=== PATIENT | female | born 1935 | race Caucasian/White ===

== ENCOUNTER → 2017-12-03 | Outpatient (CLI) | payer MEDICARE, OTHER ==
[~2017-12-03] MED LIST: ASCO500 PO; ASPI325 PO; ASPI500 PO; Aspirin EC81 MG PO; Avastin25 MG/ML INJ; BENAML10/5 PO; CALCA500CH PO; CALCIUM PO; CALPHO600 PO; CEPH500 PO; CHOL10002 PO; CODACE30; CYAN500 PO; Cardizem CD 24240 MG PO; DILT120 PO; DILT120ERA PO; DILT180 PO; DRON400T PO; ELIQUIS5 MG PO; ERGO400 PO; ESTR25VT PV; FAMO10 PO; FAMO20 PO; FOL2.2T PO; FOLGARD TABLET1 EACH PO; FOLI400; FOLI400 PO; HYDACE7.5 PO; HYDCHL12.5 PO; LIDO5TP TOP; LIDO700A20 TOP; LISI5 PO; LOVA20 PO; Lovastatin10 MG PO; MULVITA PO; MULVITB; MULVITMINF PO; Micro-K10 MEQ PO; NEPHROCAP PO; NITR.4SL SL; NITRSPRAY SL; Norco 5-325 Ta1 EACH PO; OCUVITE EYE +1 EACH PO; POTA10T PO; PRED10 PO; PYRI100 PO; Percocet 5-3251 EACH PO; Prednisone20 MG PO; RALO60; SULTRIDS PO; TRIHYD253B PO; UNISOM25 MG PO; VALS80; Vitamin D2000 UNIT PO; ZOLP10 PO; Zofran Odt4 MG PO; Zofran Odt4 MG SL; Zovirax800 MG PO; [UNRECOGNIZED DRUG - CODE] PO; [UNRECOGNIZED DRUG - OTHER] IO; [UNRECOGNIZED DRUG - OTHER] PO
[2017-12-05 16:09] LABS: HPV Genotype 16 Not Detected (NOTDET); HPV Genotype 18 Not Detected (NOTDET)
[2017-12-11 08:51] LABS: HPV High Risk Other Not Detected (NOTDET)
== END | disposition home or self-care (01) ==
LOC: OLS 15:30
PROVIDERS: Nurse Practitioner Women's Health
DX: Z12.72 Encounter for screening for malignant neoplasm of vagina (principal); Z91.89 Other specified personal risk factors, not elsewhere classified
CPT/HCPCS: 87624; G0123

== ENCOUNTER 2018-06-20 12:12 | Day surgery (SDC) | payer MEDICARE, OTHER ==
[~2018-06-20] VITALS: Ht 160 cm; Wt 62.6 kg
[~2018-06-20 12:12] MED LIST changes: -Aspirin EC81 MG PO; -FOLGARD TABLET1 EACH PO; +OXYACE5T PO; -POTA10T PO; -Vitamin D2000 UNIT PO
[2018-06-20 15:40] LABS: Hematocrit 38.7 % (33.0-51.0); Hemoglobin 12.7 g/dL (11.5-16.0)
== END 2018-06-20 23:06 | disposition home or self-care (01) ==
LOC: ORSCMMR 12:12 → ORD 13:45 → ORSCMMR 13:45
PROVIDERS: Internal Medicine Gastroenterology
PROC: 0DJ08ZZ Inspection of Upper Intestinal Tract, Via Natural or Artificial Opening Endoscopic (ICD-10-PCS; principal; 2018-06-20 13:45)
DX: K92.1 Melena (principal); K22.2 Esophageal obstruction; K44.9 Diaphragmatic hernia without obstruction or gangrene; I48.91 Unspecified atrial fibrillation; I10 Essential (primary) hypertension; I73.9 Peripheral vascular disease, unspecified; E78.00 Pure hypercholesterolemia, unspecified; Z79.01 Long term (current) use of anticoagulants; Z79.82 Long term (current) use of aspirin; Z79.899 Other long term (current) drug therapy
CPT/HCPCS: 36415; 85014; 85018; J7120

== ENCOUNTER → 2018-12-08 | Outpatient (CLI) | payer MEDICARE, OTHER ==
[~2018-12-08] MED LIST changes: +Aspirin EC81 MG PO; +FOLGARD TABLET1 EACH PO; -OXYACE5T PO; +POTA10T PO; +Vitamin D2000 UNIT PO
[2018-12-10 14:09] LABS: HPV 16 Negative (Negative); HPV 18 Negative (Negative); HPV OTHER HR TYPES Negative (Negative)
== END | disposition home or self-care (01) ==
LOC: LAB SHORT 14:15 → LAB 14:15
PROVIDERS: Nurse Practitioner Women's Health
DX: Z12.72 Encounter for screening for malignant neoplasm of vagina (principal); Z91.89 Other specified personal risk factors, not elsewhere classified
CPT/HCPCS: 87624; G0123

== ENCOUNTER → 2019-02-11 | Outpatient (CLI) | payer MEDICARE, OTHER ==
[2019-02-11 16:59] LABS: Creatinine, Urine Random 81.3 mg/dL (27.00-270.00); Protein, Urine Random 14.8 mg/dL (0.0-11.9)
== END | disposition home or self-care (01) ==
LOC: LAB SHORT 16:05 → LAB 16:05
PROVIDERS: Internal Medicine
DX: N18.3 Chronic kidney disease, stage 3 (moderate) (principal)
CPT/HCPCS: 82570; 84156

== ENCOUNTER → 2020-07-06 | Outpatient (CLI) | payer OTHER | END | disposition home or self-care (01) | LOC: LAB SHORT 10:49 → PLD 10:49 | DX: D48.5 Neoplasm of uncertain behavior of skin (principal) | CPT/HCPCS: 88305 ==

== ENCOUNTER 2021-03-06 11:50 | Day surgery (SDC) | payer OTHER ==
[~2021-03-06] VITALS: Ht 157.5 cm; Wt 61.6 kg
[~2021-03-06 11:50] MED LIST changes: +C COMPLEX1000 M1 PO; +DILTIAZEM 24HR240 M6 PO; +DRON400T; +ELIQUIS2.5 MG PO; +FURO20 PO; +LOSA25 PO; +MELATONIN1010 PO; +Ocuvite Preser1 EACH PO; +VITAMIN D325 MC3 PO
--- NOTE | 2021-03-06 12:25 | NUR ---
03/06/21 1225 JAGDISH ALCAZAR ONE ATTEMPT BY CLEMENTE IN RFA RAFA SECOND ATTEMPT BY CLEMENTE IN RAC VALVE
== END 2021-03-06 14:32 | disposition home or self-care (01) ==
LOC: ORSCSDS 11:50
PROVIDERS: Student in an Organized Health Care Education/Training Program
PROC: 0DB68ZX Excision of Stomach, Via Natural or Artificial Opening Endoscopic, Diagnostic (ICD-10-PCS; principal; 2021-03-06 13:15)
PROC: 0D758ZZ Dilation of Esophagus, Via Natural or Artificial Opening Endoscopic (ICD-10-PCS; principal; 2021-03-06 13:15)
PROC: 0DB48ZX Excision of Esophagogastric Junction, Via Natural or Artificial Opening Endoscopic, Diagnostic (ICD-10-PCS; principal; 2021-03-06 13:15)
DX: R13.10 Dysphagia, unspecified (principal); K29.50 Unspecified chronic gastritis without bleeding; K44.9 Diaphragmatic hernia without obstruction or gangrene; K22.2 Esophageal obstruction; I48.0 Paroxysmal atrial fibrillation; I73.9 Peripheral vascular disease, unspecified; Z85.72 Personal history of non-Hodgkin lymphomas; I10 Essential (primary) hypertension; E78.5 Hyperlipidemia, unspecified; K21.9 Gastro-esophageal reflux disease without esophagitis; Z79.01 Long term (current) use of anticoagulants; Z79.899 Other long term (current) drug therapy; Z87.891 Personal history of nicotine dependence
CPT/HCPCS: 88305; 88342; C1726; J2704; J7120

== ENCOUNTER 2022-04-28 18:10 | Inpatient (IN) | payer OTHER ==
[~2022-04-28] VITALS: Ht 157.5 cm; Wt 56.8 kg
[~2022-04-28 18:10] MED LIST changes: +TIMO.5OPSO BOTHEYES; +TIZA4 PO
[2022-04-28 18:36] LABS: BASOPHILS ABSOLUTE AUTO 0.02 K/mm3 (0.00-0.23); BASOPHILS PERCENT AUTO 0 % (0-2); EOSINOPHILS ABSOLUTE AUTO 0.01 K/mm3 (0.00-0.68); EOSINOPHILS PERCENT AUTO 0 % (0-6); Hematocrit 37.9 % (33.0-51.0); Hemoglobin 12.7 g/dL (11.5-16.0); IMMATURE GRAN ABSOLUTE AUTO 0.02 K/mm3 (0.00-0.10); IMMATURE GRAN PERCENT AUTO 0 % (0-1); LYMPHOCYTES ABSOLUTE AUTO 1.49 K/mm3 (0.84-5.20); LYMPHOCYTES PERCENT AUTO 17 % (21-46); MONOCYTES ABSOLUTE AUTO 1.18 K/mm3 (0.16-1.47); MONOCYTES PERCENT AUTO 14 % (4-13); Mean Corpuscular HGB 30.8 pg (26.0-34.0); Mean Corpuscular HGB Conc 33.5 g/dL (31.5-36.5); Mean Corpuscular Volume 92 fL (80-100); Mean Platelet Volume 10.4 fL (9.1-12.4); NEUTROPHILS ABSOLUTE AUTO 5.87 K/mm3 (1.96-9.15); NEUTROPHILS PERCENT AUTO 69 % (41-73); Platelet Count 197 K/mm3 (150-400); RDW Standard Deviation 44.2 fL (35.1-46.3); Red Blood Cell Count 4.13 M/mm3 (3.80-5.20); White Blood Cell Count 8.59 K/mm3 (4.00-11.30)
[2022-04-28 18:53] LABS: Albumin, Blood 3.1 g/dL (3.4-5.0); Albumin/Globulin Ratio 0.7 (0.8-1.8); Bilirubin, Total 0.5 mg/dL (0.1-1.0); Bun/Creatinine Ratio 28.6 (12.0-20.0); Calcium, Blood 8.9 mg/dL (8.5-10.1); Creatinine, Blood 1.47 mg/dL (0.40-1.00); Globulin, Blood 4.3 g/dL (2.2-4.0); Potassium, Blood 4.5 mmol/L (3.5-5.5); Total Protein, Blood 7.4 g/dL (6.4-8.2)
[2022-04-28 19:19] LABS: Influenza A, PCR NEGATIVE (NEGATIVE); Influenza B, PCR NEGATIVE (NEGATIVE); Resp Syncytial Virus, PCR NEGATIVE (NEGATIVE); SARS-Cov-2 (COVID-19) PCR, MMC NEGATIVE (NEGATIVE)
[2022-04-28] MEDS ORDERED: DILTIAZEM 24HR240 M3 PO (19:21)
[2022-04-28 21:10] LABS: Source, Urine Clean Catch
[2022-04-28 21:13] LABS: Appearance, Urine Hazy (Clear); Bilirubin, Urine Neg (Neg); Blood, Urine 2+ (Neg); Color, Urine Yellow (P-Yellow); Glucose Qualitative, Urine Neg (Neg); Ketones, Urine 1+ (Neg); Leukocyte Esterase, Urine 1+ (Neg); Nitrite, Urine Pos (Neg); Protein, Urine 3+ (Neg); Urobilinogen, Urine NORM (Normal)
[2022-04-28 21:22] LABS: Bacteria Many /hpf; Hyaline Casts 0-2 /lpf (0-2); Squamous Epithelial Cells Few /hpf (Few)
[2022-04-28 21:38] LABS: International Normalized Ratio 1.18; Prothrombin Time Results 12.3 Sec (9.7-11.5)
[2022-04-29 03:42] LABS: Creatine Kinase MB 1.3 ng/mL (0.0-3.6); Creatine Kinase MB Index 0.5 (0.0-4.0)
--- NOTE | 2022-04-29 05:15 | NUR ---
CALL TO HOSPITALIST - DR. MARINA MAC HYPOTENSION - MOST RECENT BLOOD PRESSURE 70/50. PT DENIES DIZZINESS, SHORTNESS OF BREATH, OR CHEST PAIN AT THIS TIME. HER SpO2 WAS 89% AND 2 LPM NASAL CANNULA IS IN PLACE. PT WAS HYPERTENSIVE UPON ARRIVAL TO THE EMERGENCY ROOM, WITH SYSTOLICS HIGH 200 mmHg SYSTOLIC. HER BLOOD PRESSURE UPON ADMISSION TO PCU 1 WAS 101/77. PT RECEIVED SUBLINGUAL NITROGLYCERIN, 100 MCG OF FENTANYL AND 40 MG IV LASIX IN THE EMERGENCY DEPARTMENT PRIOR TO ARRIVAL TO PCU. ORDERS RECEIVED TO ADMINISTER 500 mL BOLUS OF NORMAL SALINE X 1.
[2022-04-29 06:13] LABS: BASOPHILS ABSOLUTE AUTO 0.01 K/mm3 (0.00-0.23); BASOPHILS PERCENT AUTO 0 % (0-2); EOSINOPHILS PERCENT AUTO 0 % (0-6); Hematocrit 39.8 % (33.0-51.0); Hemoglobin 13.2 g/dL (11.5-16.0); IMMATURE GRAN ABSOLUTE AUTO 0.01 K/mm3 (0.00-0.10); IMMATURE GRAN PERCENT AUTO 0 % (0-1); LYMPHOCYTES ABSOLUTE AUTO 0.57 K/mm3 (0.84-5.20); LYMPHOCYTES PERCENT AUTO 16 % (21-46); MONOCYTES ABSOLUTE AUTO 0.05 K/mm3 (0.16-1.47); MONOCYTES PERCENT AUTO 1 % (4-13); Mean Corpuscular HGB Conc 33.2 g/dL (31.5-36.5); Mean Corpuscular Volume 93 fL (80-100); Mean Platelet Volume 10.9 fL (9.1-12.4); NEUTROPHILS ABSOLUTE AUTO 2.86 K/mm3 (1.96-9.15); NEUTROPHILS PERCENT AUTO 82 % (41-73); Platelet Count 208 K/mm3 (150-400); RDW Coefficient Variation 12.7 % (11.7-14.2); RDW Standard Deviation 43.8 fL (35.1-46.3); Red Blood Cell Count 4.26 M/mm3 (3.80-5.20)
[2022-04-29 06:33] LABS: Albumin, Blood 2.9 g/dL (3.4-5.0); Albumin/Globulin Ratio 0.6 (0.8-1.8); Bilirubin, Total 0.4 mg/dL (0.1-1.0); Bun/Creatinine Ratio 28.5 (12.0-20.0); Calcium, Blood 8.7 mg/dL (8.5-10.1); Creatinine, Blood 1.65 mg/dL (0.40-1.00); Globulin, Blood 4.5 g/dL (2.2-4.0); Potassium, Blood 4.4 mmol/L (3.5-5.5); Total Protein, Blood 7.4 g/dL (6.4-8.2)
--- NOTE | 2022-04-29 08:14 | NUR ---
Am note Pt alert, oriented x4; calm and cooperative with care. Pt up in chair, sba in room. Pt denies pain, chest pain/pressure, sob, nasuea, dizziness, or numb/tingling. Ls clear t/o, spo2 >94% on 1l o2 via nc, breathing even and unlabored, titrated to ra. Tele sinus at 60, bp labile, map >60. Bt normoactive t/o, soft nontender. Pt on heparin gtt, infusing per orders. Other vss. No s/sx if distress noted. Awaiting cardiology consult. Will continue to monitor.
[2022-04-29 12:16] LABS: Creatine Kinase MB 2.4 ng/mL (0.0-3.6); Creatine Kinase MB Index 0.9 (0.0-4.0)
--- NOTE | 2022-04-29 17:17 | NUR ---
Shift Summary Pt continues to denies pain, chest pain/pressure, sob, nausea and dizziness t/o shift. Heparin gtt continues per orders. Dr Arriaza at bedside this am, plans for stress test tomorrow. Vss. No other acute changes noted. Will continue to monitor.
[2022-04-30 01:08] LABS: BASOPHILS PERCENT AUTO 0 % (0-2); EOSINOPHILS PERCENT AUTO 0 % (0-6); Hematocrit 35.5 % (33.0-51.0); Hemoglobin 11.7 g/dL (11.5-16.0); IMMATURE GRAN ABSOLUTE AUTO 0.02 K/mm3 (0.00-0.10); IMMATURE GRAN PERCENT AUTO 0 % (0-1); LYMPHOCYTES ABSOLUTE AUTO 0.97 K/mm3 (0.84-5.20); LYMPHOCYTES PERCENT AUTO 12 % (21-46); MONOCYTES ABSOLUTE AUTO 0.79 K/mm3 (0.16-1.47); MONOCYTES PERCENT AUTO 10 % (4-13); Mean Corpuscular HGB 30.5 pg (26.0-34.0); Mean Corpuscular Volume 93 fL (80-100); Mean Platelet Volume 10.8 fL (9.1-12.4); NEUTROPHILS ABSOLUTE AUTO 6.14 K/mm3 (1.96-9.15); NEUTROPHILS PERCENT AUTO 78 % (41-73); Platelet Count 218 K/mm3 (150-400); RDW Coefficient Variation 12.7 % (11.7-14.2); RDW Standard Deviation 43.4 fL (35.1-46.3); Red Blood Cell Count 3.83 M/mm3 (3.80-5.20); White Blood Cell Count 7.92 K/mm3 (4.00-11.30)
[2022-04-30 01:34] LABS: Albumin, Blood 2.7 g/dL (3.4-5.0); Albumin/Globulin Ratio 0.7 (0.8-1.8); Bilirubin, Total 0.3 mg/dL (0.1-1.0); Bun/Creatinine Ratio 41.3 (12.0-20.0); Calcium, Blood 8.4 mg/dL (8.5-10.1); Creatinine, Blood 1.38 mg/dL (0.40-1.00); Globulin, Blood 3.9 g/dL (2.2-4.0); Magnesium, Blood 1.9 mg/dL (1.6-2.4); Phosphorus, Blood 3.1 mg/dL (2.5-4.9); Potassium, Blood 4.1 mmol/L (3.5-5.5); Thyroid Stimulating Hormone 0.063 uIU/mL (0.360-4.800); Total Protein, Blood 6.6 g/dL (6.4-8.2)
--- NOTE | 2022-04-30 04:36 | NUR ---
CALL TO HOSPITALIST MARINA MAC REPEAT ISSUE WITH LOW BLOOD PRESSURE OVERNIGHT. MOST RECENT READINGS ARE 79/47 71/51 PT IS ASYMPTOMATIC. ORDERS RECEIVED FOR 500 mL BOLUS OF NORMAL SALINE.
--- NOTE | 2022-04-30 06:14 | NUR ---
CALL TO HOSPITALIST MARINA MAC HYPOTENSION PERSISTS FOLLOWING 500 mL BOLUS. MOST RECENT READING IS 74/48. PT REMAINS ASYMPTOMATIC ORDERS RECEIVED FOR ANOTHER 500 mL BOLUS OF NORMAL SALINE AND ONE TIME DOSE OF 5 MG PO MIDODRINE
--- NOTE | 2022-04-30 17:32 | NUR ---
Shift Summary Pt alert, oriented X4; calm and cooperative with care. Pt resting in bed, up with sba to bsc. Pt reports chest pain this afternoon, quickly resolved prior to rn getting to room, vss. Tele sinus, bp soft, held bp medications, md aware. One day stress test completed, abd and leg pain with procedure, pending results. Other vss. No other acute changes. Will continue to monitor.
--- NOTE | 2022-04-30 20:25 | NUR ---
ALERTED TO NEW ONSET NAUSEA W/SMALL AMOUNT OF EMESIS W/CONTINUED DIARRHEA. SHE DENIES ALL S/S CARDIAC DISTRESS AND VSS/AFEBRILE. ZOFRAN 4-8MG Q4H PRN RX'D. NAUSEA HAS SUBSIDED AT PRESENT BUT STAFF WILL ADMIN MED PRN.
--- NOTE | 2022-05-01 00:09 | NUR ---
ALERTED TO PT C/O OF NAUSEA PERSISTING AFTER RECIEVING ADDITIONAL DOSE OF ZOFRAN PRN FOR NO RELIEF. SHE ADMITS TO HX OF "INTERNAL BLEEDING AND BLACK STOOL" W/INABILITY TO TREAT D/T "NOT TOLERATING PREP". PT BELIEVES SHE HASN'T HAD A BM IN X2 DAYS BUT X5 BM'S ARE CHARTED SINCE ADMIT. ABDO IS SOFT BUT SHE REPORTS L.SIDED ABDO PAIN W/PALPATION AND FEELS DISTENDED. BT'S (+) X4 QUADS. NEW ORDER RECIEVED FOR BENEDRYL 25MG PO X1 AND METOCLOPRAMIDE 10MG IV X1. WILL ADMIN WHEN MEDS AVAILABLE AND MD PLANS TO ROUND MOMENTARILY.
--- NOTE | 2022-05-01 01:23 | NUR ---
ROUNDED ON PT AND SHE'D REPORTED NO LONGER FEELING NAUSEOUS AT THAT TIME. BENEDRYL WAS STILL GIVEN TO ASSIST W/INABILITY TO SLEEP BUT STAFF HELD X1 METCLOPRAMIDE AT THE TIME. HOWEVER MED WAS RECENTLY REQUIRED PT AGAIN C/O NAUSEA AND ABDO DISCOMFORT, WILL MONITOR FOR EFFECT.
--- NOTE | 2022-05-01 05:34 | NUR ---
PT'S IV LEAKING. NEW IV PLACED TO R.UA VIA US AFTER X2 FAILED IV STARTS.
--- NOTE | 2022-05-01 05:43 | NUR ---
SUMMARY: PT A/OX4, CALLS APPROPRIATELY TO SPECIFY NEEDS AND IS PLEASANT AND COOPERATIVE W/CARE. BP'S HAVE IMPROVED THIS SHIFT BUT SHE HAS HAD INTERMITTENT NAUSEA W/X1 EPISODE NAUSEA AND OCCASIONAL DRY HEAVING. MADE AWARE AND WAS INFORMED THAT PT HAD BECOME SYMPTOMATIC DURING 1ST PART OF STRESS TEST W/REPORTED "REVERSAL AGENT" RECIEVED ON DAY SHIFT. NEW COMPLAINTS OF NAUSEA BEGAN DURING SHIFT REPORT. ZOFRAN PRN WAS INITIALLY RX'D AND RECIVED FOR SOME IMPROVEMENT BUT NAUSEA PERSISTED SO BENEDRYL PO X1 AND REGLAN IV X1 WERE RX'D. PT BECAME DROWSY BUT STILL HAD DIFFICULTY SLEEPING R/T NAUSEA SO ADDITIONAL ZOFRAN PRN HAS BEEN REQUIRED. SHE'S ALSO REPORTED TENDERNESS TO L.ABDO AND SLIGHT PAIN TO MID LOWER ABDO. BOWEL TONES (+)X4 QUADS BUT PT DENIES ABILITY TO PASS FLATUS OR HAVE BM THIS SHIFT. PT HAS DENIED COMPLAINTS OTHERWISE AND HAS BEEN W/O S/S CARDIAC DISTRESS. SHE REMAINS NSR W/PVC'S ON TELEMETRY W/HR 70'S-80'S BPM. PT SBA TO BSC TO VOID OFTEN. NO ACUTE CHANGES, VSS/AFEBRILE. WCTM AND REPORT TO DAY RN.
--- NOTE | 2022-05-01 06:07 | NUR ---
UPDATED TO PERSISTENT NAUSEA W/DRY HEAVING AND ABDO PAIN UNRELIEVED BY PRN MEDS IN PRESENCE OF NO BM OR FLATUS TONIGHT DESPITE (+) BT'S. NEW ORDER RECIEVED FOR ABDO XRAY.
--- NOTE | 2022-05-01 07:32 | NUR ---
Am note Pt alert, oriented x4; calm and cooperative with care. Pt resting in bed, up to bsc with sba. Pt reporting nausea intermittently, onset last night. Pt reports llq abd tenderness, abd soft, normoactive bt X4 quad, pt having loose bm yesterday. Ls clear t/o dim to bases, spo2 >94% on ra, breathing even and unlabored. Tele nsr, bp stable. Pt denies chest pain/pressure, sob, dizziness and numb/tingling. Other vss. No s/sx of distress noted. Will continue to monitor.
--- NOTE | 2022-05-01 12:19 | NUR ---
HR Pt converted to afib with rates 120-150's, at approx 0900, bp stable, medicated with emar. Notified Dr Bazzi, no new orders, will continue to monitor.
--- NOTE | 2022-05-01 13:31 | NUR ---
Pt converted back to sinus, appears to be sleeping. Notified Dr Bazzi. Will continue to monitor.
--- NOTE | 2022-05-01 16:05 | NUR ---
Pt had another episode on nausea, no emesis at this time. Will continue to monitor.
--- NOTE | 2022-05-01 16:45 | NUR ---
Shift Summary Pt continues to have nausea this afternoon, attempted eating a snack this afternoon when she reported nausea. Pt converted back to sinus this this afternoon, bp and heart rate stable. No other acute changes noted. Other vss. Plans to stay the night again per Dr Bazzi, new orders for medical status with tele. Will continue to monitor until report given to oncoming rn.
--- NOTE | 2022-05-01 19:59 | NUR ---
Assumed care 1900. VSS on RA. Pt had nausea and dry heaving right at start of shift, prn zofran given. Will wait to give night meds until nausea has subsided.
[2022-05-02 03:54] LABS: BASOPHILS ABSOLUTE AUTO 0.01 K/mm3 (0.00-0.23); BASOPHILS PERCENT AUTO 0 % (0-2); EOSINOPHILS PERCENT AUTO 0 % (0-6); Hematocrit 41.1 % (33.0-51.0); Hemoglobin 13.7 g/dL (11.5-16.0); IMMATURE GRAN ABSOLUTE AUTO 0.04 K/mm3 (0.00-0.10); IMMATURE GRAN PERCENT AUTO 0 % (0-1); LYMPHOCYTES ABSOLUTE AUTO 1.45 K/mm3 (0.84-5.20); LYMPHOCYTES PERCENT AUTO 13 % (21-46); MONOCYTES ABSOLUTE AUTO 0.98 K/mm3 (0.16-1.47); MONOCYTES PERCENT AUTO 8 % (4-13); Mean Corpuscular HGB 30.9 pg (26.0-34.0); Mean Corpuscular HGB Conc 33.3 g/dL (31.5-36.5); Mean Corpuscular Volume 93 fL (80-100); NEUTROPHILS ABSOLUTE AUTO 9.16 K/mm3 (1.96-9.15); NEUTROPHILS PERCENT AUTO 79 % (41-73); Platelet Count 297 K/mm3 (150-400); RDW Coefficient Variation 13.1 % (11.7-14.2); RDW Standard Deviation 44.4 fL (35.1-46.3); Red Blood Cell Count 4.44 M/mm3 (3.80-5.20); White Blood Cell Count 11.64 K/mm3 (4.00-11.30)
[2022-05-02 04:18] LABS: Albumin, Blood 3.2 g/dL (3.4-5.0); Albumin/Globulin Ratio 0.8 (0.8-1.8); Bilirubin, Total 0.4 mg/dL (0.1-1.0); Bun/Creatinine Ratio 27.4 (12.0-20.0); Calcium, Blood 9.2 mg/dL (8.5-10.1); Creatinine, Blood 0.98 mg/dL (0.40-1.00); Globulin, Blood 4.2 g/dL (2.2-4.0); Magnesium, Blood 1.8 mg/dL (1.6-2.4); Potassium, Blood 3.8 mmol/L (3.5-5.5); Total Protein, Blood 7.4 g/dL (6.4-8.2)
--- NOTE | 2022-05-02 05:04 | NUR ---
[employer] Note: Pt is A&O, pleasant with cares. VSS on RA. Tele: SR w/ PVCs. Nausea in the begining of shift, prn zofran and phenergan given with good effect. Benadryl given for sleep. Pt slept pretty good overnight after prn med.
[2022-05-02] MEDS ORDERED: CEFD300 PO (10:26)
[2022-05-02] MEDS ORDERED: ATOR40TA PO (10:26)
[2022-05-02] MEDS ORDERED: PROMETHAZINE12.5 M1 PO (10:27)
[2022-05-03] MEDS ORDERED: FURO20 PO (09:31)
[2022-05-03] MEDS ORDERED: ELIQUIS5 M2 PO (09:31)
[2022-05-03] MEDS ORDERED: CARTIA XT PO (09:31)
[2022-05-03] MEDS ORDERED: LOSA25 PO (09:32)
[2022-05-03] MEDS ORDERED: DRON400T (09:32)
[2022-05-03] MEDS ORDERED: Lovastatin20 MG PO (09:32)
[2022-05-03] MEDS ORDERED: ALDACTONE25 MG PO (09:33)
[2022-05-04] MEDS ORDERED: Ocuvite Preser1 EACH PO (14:42)
[2022-05-04] MEDS ORDERED: C COMPLEX1000 M1 PO (14:42)
[2022-05-04] MEDS ORDERED: THERA-D2000 UNIT PO (14:43)
[2022-05-04] MEDS ORDERED: TIZA4 PO (14:44)
[2022-05-04] MEDS ORDERED: ATOR40TA PO (14:45)
[2022-05-07] MEDS ORDERED: ACET325 PO (13:58)
[2022-05-07] MEDS ORDERED: DILTIAZEM 24HR180 M3 PO (13:59)
== END 2022-05-02 11:49 | disposition home or self-care (01) | DRG 281 ==
LOC: ER 18:10 → ICUW 18:11 → ER 18:11 → PCU 18:11 → EDBEDREQ 23:02 → EDBEDREQTM 23:02 → EDBEDREQSVC 23:02 → PCU 23:40
PROVIDERS: Emergency Medicine; Family Medicine; Hospitalist; Internal Medicine; ADMIT Internal Medicine
DX: I13.0 Hypertensive heart and chronic kidney disease with heart failure and stage 1 through stage 4 chronic kidney disease, or unspecified chronic kidney disease (principal); I21.A1 Myocardial infarction type 2; N18.4 Chronic kidney disease, stage 4 (severe); N39.0 Urinary tract infection, site not specified; Z20.822 Contact with and (suspected) exposure to COVID-19; Z66 Do not resuscitate; I50.9 Heart failure, unspecified; I16.0 Hypertensive urgency; I25.10 Atherosclerotic heart disease of native coronary artery without angina pectoris; I48.0 Paroxysmal atrial fibrillation; G89.29 Other chronic pain; Z79.01 Long term (current) use of anticoagulants; Z79.899 Other long term (current) drug therapy; Z90.49 Acquired absence of other specified parts of digestive tract; Z90.710 Acquired absence of both cervix and uterus; Z90.89 Acquired absence of other organs; Z98.890 Other specified postprocedural states; Z88.6 Allergy status to analgesic agent; Z88.8 Allergy status to other drugs, medicaments and biological substances
CPT/HCPCS: 0241U; 36415; 71045; 74019; 78452; 80053; 81001; 82550; 82553; 83735; 83880; 84100; 84443; 84484; 85025; 85610; 85730; 87077; 87086; 87186; 93005; 93010; 93017; 94762; 96374; 96375; 96376; 99285-25; A9270; A9500; G0378; J0280; J0696; J1644; J1940; J2405; J2765; J2785; J3010; J7040

== ENCOUNTER 2022-05-03 08:14 | Emergency (ER) | payer OTHER ==
[~2022-05-03] VITALS: Ht 157.5 cm; Wt 57.1 kg
[~2022-05-03 08:14] MED LIST changes: +ATOR40TA PO; +CEFD300 PO; +DILTIAZEM 24HR240 M3 PO; +PROMETHAZINE12.5 M1 PO
[2022-05-03 08:54] LABS: BASOPHILS ABSOLUTE AUTO 0.01 K/mm3 (0.00-0.23); BASOPHILS PERCENT AUTO 0 % (0-2); EOSINOPHILS ABSOLUTE AUTO 0.02 K/mm3 (0.00-0.68); EOSINOPHILS PERCENT AUTO 0 % (0-6); Hematocrit 39.5 % (33.0-51.0); Hemoglobin 12.9 g/dL (11.5-16.0); IMMATURE GRAN ABSOLUTE AUTO 0.04 K/mm3 (0.00-0.10); IMMATURE GRAN PERCENT AUTO 0 % (0-1); LYMPHOCYTES ABSOLUTE AUTO 1.21 K/mm3 (0.84-5.20); LYMPHOCYTES PERCENT AUTO 12 % (21-46); MONOCYTES ABSOLUTE AUTO 0.82 K/mm3 (0.16-1.47); MONOCYTES PERCENT AUTO 8 % (4-13); Mean Corpuscular HGB 30.7 pg (26.0-34.0); Mean Corpuscular HGB Conc 32.7 g/dL (31.5-36.5); Mean Corpuscular Volume 94 fL (80-100); Mean Platelet Volume 11.1 fL (9.1-12.4); NEUTROPHILS ABSOLUTE AUTO 7.99 K/mm3 (1.96-9.15); NEUTROPHILS PERCENT AUTO 79 % (41-73); Platelet Count 271 K/mm3 (150-400); RDW Coefficient Variation 13.2 % (11.7-14.2); RDW Standard Deviation 45.4 fL (35.1-46.3); White Blood Cell Count 10.09 K/mm3 (4.00-11.30)
[2022-05-03 09:08] LABS: Albumin, Blood 2.8 g/dL (3.4-5.0); Albumin/Globulin Ratio 0.8 (0.8-1.8); Bilirubin, Total 0.5 mg/dL (0.1-1.0); Calcium, Blood 8.9 mg/dL (8.5-10.1); Creatinine, Blood 1.52 mg/dL (0.40-1.00); Globulin, Blood 3.7 g/dL (2.2-4.0); Potassium, Blood 4.6 mmol/L (3.5-5.5); Total Protein, Blood 6.5 g/dL (6.4-8.2)
[2022-05-03 09:24] LABS: Source, Urine Straight Cath
[2022-05-03] MEDS ORDERED: CARTIA XT PO (09:31)
[2022-05-03] MEDS ORDERED: FURO20 PO (09:31)
[2022-05-03] MEDS ORDERED: ELIQUIS5 M2 PO (09:31)
[2022-05-03] MEDS ORDERED: Lovastatin20 MG PO (09:32)
[2022-05-03] MEDS ORDERED: LOSA25 PO (09:32)
[2022-05-03] MEDS ORDERED: DRON400T (09:32)
[2022-05-03] MEDS ORDERED: ALDACTONE25 MG PO (09:33)
[2022-05-03 09:39] LABS: Appearance, Urine Clear (Clear); Bilirubin, Urine Neg (Neg); Blood, Urine 1+ (Neg); Color, Urine Yellow (P-Yellow); Glucose Qualitative, Urine Neg (Neg); Ketones, Urine 1+ (Neg); Leukocyte Esterase, Urine Neg (Neg); Nitrite, Urine Neg (Neg); Protein, Urine 3+ (Neg); Specific Gravity, Urine 1.015 (1.003-1.022); Urobilinogen, Urine NORM (Normal)
[2022-05-03 09:58] LABS: Amorphous Light (0-Heavy); Bacteria Few /hpf; Red Blood Cells, Urine 0-2 /hpf (0-2); Squamous Epithelial Cells Few /hpf (Few); White Blood Cells, Urine 0-2 /hpf (0-5)
[2022-05-04] MEDS ORDERED: Ocuvite Preser1 EACH PO (14:42)
[2022-05-04] MEDS ORDERED: C COMPLEX1000 M1 PO (14:42)
[2022-05-04] MEDS ORDERED: THERA-D2000 UNIT PO (14:43)
[2022-05-04] MEDS ORDERED: TIZA4 PO (14:44)
[2022-05-04] MEDS ORDERED: ATOR40TA PO (14:45)
== END 2022-05-03 13:00 | disposition home or self-care (01) ==
LOC: ER 08:14
PROVIDERS: Physician Assistant
DX: I95.9 Hypotension, unspecified (principal); I12.9 Hypertensive chronic kidney disease with stage 1 through stage 4 chronic kidney disease, or unspecified chronic kidney disease; N18.2 Chronic kidney disease, stage 2 (mild); Z88.8 Allergy status to other drugs, medicaments and biological substances; Z79.01 Long term (current) use of anticoagulants; Z79.899 Other long term (current) drug therapy; Z76.0 Encounter for issue of repeat prescription
CPT/HCPCS: 36415; 80053; 81001; 85025; 93005; 93010; J7030

== ENCOUNTER → 2022-05-13 | Outpatient (CLI) | payer OTHER ==
[~2022-05-13] MED LIST changes: +ACET325 PO; +ALDACTONE25 MG PO; +CARTIA XT PO; +DILTIAZEM 24HR180 M3 PO; +ELIQUIS5 M2 PO; +Lovastatin20 MG PO; +THERA-D2000 UNIT PO
[2022-05-15 22:15] LABS: Adenovirus F 40/41 Not Detected (NOT DETECT); Astrovirus Not Detected (NOT DETECT); Campylobacter Sp Not Detected (NOT DETECT); Cryptosporidium Not Detected (NOT DETECT); Cyclospora Cayetanensis Not Detected (NOT DETECT); E. Coli O157 Not Detected (NOT DETECT); Entamoeba Histolytica Not Detected (NOT DETECT); Enteroaggregative E. coli-EAEC Not Detected (NOT DETECT); Enteropathogenic E. coli-EPEC Not Detected (NOT DETECT); Enterotoxigenic E. coli-ETEC Not Detected (NOT DETECT); Giardia Lamblia Not Detected (NOT DETECT); Norovirus GI/GII Not Detected (NOT DETECT); Plesiomonas Shigelloides Not Detected (NOT DETECT); Rotavirus A Not Detected (NOT DETECT); Salmonella Sp Not Detected (NOT DETECT); Sapovirus Not Detected (NOT DETECT); Shiga Toxin-prod E. coli-STEC Not Detected (NOT DETECT); Shigella/Enteroin E. coli-EIEC Not Detected (NOT DETECT); Vibrio Cholerae Not Detected (NOT DETECT); Vibrio Sp Not Detected (NOT DETECT); Yersinia Enterocolitica Not Detected (NOT DETECT)
== END | disposition home or self-care (01) ==
LOC: LAB SHORT 16:30 → LAB 16:30
PROVIDERS: Internal Medicine
DX: R19.7 Diarrhea, unspecified (principal)
CPT/HCPCS: 87507

== ENCOUNTER → 2022-08-30 | Outpatient (CLI) | payer OTHER ==
[2022-08-30 16:42] LABS: Source, Urine Clean Catch
[2022-08-30 18:08] LABS: Appearance, Urine Clear (Clear); Bilirubin, Urine Neg (Neg); Blood, Urine Neg (Neg); Color, Urine Yellow (P-Yellow); Glucose Qualitative, Urine Neg (Neg); Ketones, Urine Neg (Neg); Leukocyte Esterase, Urine Neg (Neg); Nitrite, Urine Neg (Neg); Protein, Urine 3+ (Neg); Urobilinogen, Urine NORM (Normal)
[2022-08-30 18:39] LABS: Bacteria Rare /hpf; Red Blood Cells, Urine 0-2 /hpf (0-2); Squamous Epithelial Cells Few /hpf (Few); White Blood Cells, Urine 0-2 /hpf (0-5)
[2022-08-30 18:40] LABS: Hyaline Casts 0-2 /lpf (0-2)
[2022-08-30 18:59] LABS: Creatinine, Urine Random 42.8 mg/dL (27.00-270.00); Protein/Creat Ratio, Ur Random 1.7
== END ==
LOC: LAB SHORT 15:15 → LAB 15:15
PROVIDERS: Internal Medicine Nephrology
DX: N18.32 Chronic kidney disease, stage 3b (principal)
CPT/HCPCS: 81001; 82570; 84156